=== PATIENT | female | born 1985 | race Caucasian/White ===

== ENCOUNTER 2017-05-01 09:15 | Day surgery (SDC) | payer BC ==
--- NOTE | 2017-04-26 10:26 | GHP ---
[f rep st] PREOP HISTORY AND PHYSICAL DATE OF ADMISSION: 05/01/2017 CHIEF COMPLAINT: Breast hypertrophy. HISTORY OF PRESENTING COMPLAINT: The patient is a 32-year-old woman who has been bothered by large breasts since adolescence. She has been symptomatic with neck, back and shoulder pain and, in fact, underwent C-spine diskectomy and fusion in 2013. PAST MEDICAL HISTORY: Generally unremarkable, aside from her C-spine fusion. She has also had an O RIF of right forearm fracture. MEDICATIONS: None. ALLERGIES: She has allergy to IV contrast and gabapentin. She is also sensitive to adhesives. PHYSICAL EXAMINATION: GENERAL: On examination she is a pleasant, healthy-looking, 32-year-old woma n. CARDIOVASCULAR: Heart sounds are normal. RESPIRATORY: Clear with good air entry. IMPRESSION: She is fit for the procedure. PLAN: Bilateral breast reduction. /[id number]/MODL
[~2017-05-01 09:15] MED LIST: LR 1,000 ML IV SCH; ceFAZolin 2 GM/DEXTROSE 100 ML IV ONE
[2017-05-01] MEDS ORDERED: LIDO/EPI 1% **Not for Epidural 20 ML MDV ONE (09:28)
[2017-05-01] MEDS ORDERED: LIDO/EPI 1% **for epidural** 30 ML SDV ONE (09:29)
[2017-05-01] MEDS ORDERED: LR 1,000 ML IV ONE (09:55)
[2017-05-01] MEDS ORDERED: LIDOCAINE 1% 5 ML SDV ID PRN (09:55)
[2017-05-01] MEDS ORDERED: MIDAZOLAM 2 MG/2 ML VIAL ONE (09:58)
[2017-05-01] MEDS ORDERED: fentaNYL 100 MCG/2 ML INJ ONE ×4 (10:15→14:47)
[2017-05-01] MEDS ORDERED: PROPOFOL/EMULSION 500 MG/50 ML BOTTLE IV ONE ×2 (10:15→11:39)
[2017-05-01] MEDS ORDERED: LIDOCAINE 2% JELLY 5 ML TUBE ONE (10:16)
[2017-05-01] MEDS ORDERED: DEXAMETHASONE 4 MG/ML VIAL ONE (10:16)
[2017-05-01] MEDS ORDERED: LIDOCAINE 2% 100 MG/5 ML SYR ONE (10:16)
[2017-05-01] MEDS ORDERED: ONDANSETRON 4 MG/2 ML VIAL ONE ×2 (10:16→14:52)
--- NOTE | 2017-05-01 13:25 | GOP ---
[f rep st] OPERATIVE REPORT DATE OF OPERATION: 05/01/2017 SURGEON: Landon Goss MD PREOPERATIVE DIAGNOSIS: Mammary hypertrophy. POSTOPERATIVE DIAGNOSIS: Mammary hypertrophy. PROCEDURE PERFORMED: Bilateral breast reduction. FINDINGS: DESCRIPTION OF PROCEDURE: With the patient lying supine under general anesthesia, the anterior ches t region was prepped and draped in the usual fashion. Incisions were made according to preoperative markings for a modified vertical pattern breast reduction with superomedial pedicle technique. Ped icle was de-epithelialized. Superior and lateral breast flaps were developed. The glandular pedicl e was then reduced down bilaterally. Bleeders were controlled with electrocautery. A total of 852 g was removed on the right side, and 1130 g on the left side. Luca-Chowdary drains were placed bila terally and closure was carried out with 3-0 STRATAFIX running subcuticular sutures. Dressing of [place]-Strips and gauze was applied. Procedure was tolerated well. Estimated blood loss 50 mL. /[id number]/MODL
[2017-05-01] MEDS ORDERED: OXYCODONE/APAP 5/325 TAB ONE (13:49)
[2017-05-01] MEDS ORDERED: PROMETHAZINE HCL 25 MG/ML INJ ONE (16:19)
== END 2017-05-01 16:10 | disposition home health service (06) ==
LOC: FSGY 09:15
PROVIDERS: ATTEND Plastic Surgery
PROC: 0HBV0ZZ Excision of Bilateral Breast, Open Approach (ICD-10-PCS; principal; 2017-05-01 10:15)
DX: N62 Hypertrophy of breast (principal); M54.2 Cervicalgia; M25.519 Pain in unspecified shoulder
CPT/HCPCS: J0690; J1100; J2001; J2250; J2405; J2550; J2704; J3010